=== PATIENT | female | born 1970 | race Caucasian/White ===

== ENCOUNTER 2019-09-06 01:00 | Emergency (ER) | payer OTHER ==
[~2019-09-06] VITALS: Ht 160 cm; Wt 61.2 kg
== END 2019-09-06 03:52 | disposition home or self-care (01) ==
LOC: ER 01:00
DX: H00.031 Abscess of right upper eyelid (principal); H00.032 Abscess of right lower eyelid

== ENCOUNTER 2022-06-24 09:33 | Emergency (ER) | payer OTHER ==
[~2022-06-24] VITALS: Ht 160 cm; Wt 63.5 kg
== END 2022-06-24 12:56 ==
LOC: ER 09:33
DX: M77.8 Other enthesopathies, not elsewhere classified (principal); M25.512 Pain in left shoulder